=== PATIENT | male | born 1950 | race Caucasian/White ===

== ENCOUNTER → 2016-12-29 | Outpatient (CLI) | payer MEDICARE, OTHER ==
--- NOTE | 2016-12-29 15:39 | KCIC ---
INDICATION: Low back pain extending into both legs, has increased from last year. TECHNIQUE: Sagittal T1, sagittal T2, sagittal STIR, axial T1, and axial T2 sequences are provided. Comparison is from October 17, 2015. FINDINGS: There is straightening of lumbar lordosis but no subluxation. There are a few probable hemangiomas. There is fatty replacement of the endplates at several levels. There is endplate edema which appears degenerative in the inferior endplate of L3 and at L1-L2 posteriorly. A few small Schmorl's nodes are noted. There is diffuse disc desiccation and narrowing of disc spaces. The conus medullaris is normal in signal intensity and in position. Probable cysts in the kidneys are retrospectively stable. The numbering system assumes 5 lumbar type vertebral bodies. Findings by individual level are as follows: L1-L2: Disc osteophyte complex has a right paracentral protruding component. There is mild facet hypertrophy. There is right lateral recess narrowing. Midline AP diameter of the thecal sac is narrowed to 9 mm. There is mudl-xy-covlbcby right foraminal narrowing. L2-L3: Disc osteophyte complex and facet and ligamentum flavum hypertrophy are noted. There is moderate to severe canal stenosis. There is lateral recess narrowing bilaterally but greater on the right. Foraminal narrowing is [id number]. L3-L4: Disc osteophyte complex and marked facet and ligamentum flavum hypertrophy are noted. There is severe canal stenosis and lateral recess narrowing. There is moderate right and mild left foraminal narrowing. Nerve roots appear redundant below this level. L4-L5: Disc osteophyte complex and marked facet and ligamentum flavum hypertrophy result in moderate to severe canal stenosis with lateral recess narrowing bilaterally. Foraminal narrowing is [id number] on the right and severe on the left. L5-S1: Disc osteophyte complex and facet hypertrophy are noted with moderate left and yhzh-rz-uayznbge right foraminal narrowing. In addition to the advanced degenerative changes, the AP dimension of the spinal canal appears diffusely narrowed, likely on a developmental basis secondary to short pedicles. IMPRESSION: Degenerative changes in the lumbar spine remain greatest at L3-L4 and L4-L5. There is high-grade canal stenosis at these levels. Overall, findings are relatively stable. Electronically signed by: Perry Cervantes MD (12/29/2016 3:36 PM) [email or web address]
== END | disposition home or self-care (01) ==
LOC: KCIC MRI 14:15
PROVIDERS: ATTEND Physician Assistant
DX: M47.896 Other spondylosis, lumbar region (principal); M48.06 Spinal stenosis, lumbar region
CPT/HCPCS: 72148

== ENCOUNTER → 2018-05-08 | Outpatient (CLI) | payer MEDICARE, OTHER ==
[~2018-05-08] MED LIST: GADOBUTROL 10 MMOL/10 ML VIAL IV ONE; LEVO25TA55 PO; SERT25TA PO
--- NOTE | 2018-05-08 17:21 | KCIC ---
MRI Lumbar Spine without and with contrast History: Low back pain, previous surgery, right hip pain Technique: Multiplanar, multi sequential pre and postcontrast MR imaging was performed of the lumbar spine. Comparison: December 29, 2016 Findings: Since the previous exam, there has been development of the anterior, superior height loss of L4 although not associated with significant marrow edema or osseous retropulsion. AP alignment is unchanged, negligible anterior spondylolisthesis L1-2. There is multilevel fairly advanced degenerative disc disease throughout lumbar spine other than mild to moderate degenerative disc disease at L4-5, progression of degenerative disc disease in the interval most notable L2-3 and L3-4. There is multilevel variable degenerative endplate change, also somewhat amorphous L3-4 endplate edema more likely to be reactive/degenerative in etiology. There is hemangioma of the L2 vertebral body, other scattered smaller foci of fatty marrow replacement or hemangiomas. Conus terminates at L1-2. There is no nodular enhancement of the conus or cauda equina. There is mild levoscoliosis. L1-L2: There has been interval posterior decompression. There is again disc osteophyte complex and shallow protrusion more eccentric to the right lateral recess, mild to moderate narrowing of the far right lateral recess with contact of the right L2 nerve root, central canal and left lateral recess overall adequate. There is mild facet degenerative change. There is mild narrowing of the right neural foramen, left neural foramen adequate. L2-L3: There has been interval posterior decompression. There is facet degenerative change. There is disc osteophyte complex again greater in the right lateral recess, mild narrowing of the far right lateral recess. Central canal is now overall adequate. There is moderate narrowing of the right neural foramen by disc osteophyte complex as seen previously, also contact of the undersurface exiting right L2 nerve root in the distal neural foramen and extraforaminal region by disc osteophyte complex. Left neural foramen is overall adequate. L3-L4: There has been interval posterior decompression. There is facet degenerative change. There is now small synovial cyst in the far right lateral recess about 0.3 cm. There is disc osteophyte complex, adjacent enhancing fibrosis greatest centrally. There is residual mild to moderate narrowing of the far right lateral recess primarily from posteriorly by facet, decreased central canal stenosis.There is fairly severe narrowing of the right neural foramen primarily from disc osteophyte complex with contact exiting right L3 nerve root in the neural foramen and extraforaminal region. There is mild narrowing left neural foramen inferiorly by disc osteophyte complex. L4-L5: There has been posterior decompression. There is left greater than right facet degenerative change as seen previously. There is broad posterior disc osteophyte complex. Central canal is now overall adequate, residual mild narrowing of the far left lateral recess. There is again fairly severe narrowing of the left neural foramen primarily from disc osteophyte complex with contact exiting left L4 nerve root, mild to moderate narrowing on the right. L5-S1: There is facet degenerative change and minimal buckling of the ligamentum flavum. There is broad posterior disc osteophyte complex. There is again mild narrowing of the far left lateral recess, to lesser degree on right. There is severe left and moderate right neural foramina compromise as seen previously. Impression: 1. There has been multilevel posterior decompression L1-L2 through L4-5. There is residual lateral recess stenosis as stated greatest on the right at L1-2 and L3-4. There is multilevel lumbar degenerative disc disease, progressed most notable at L2-3 and L3-4 since 2017 exam. There has been development of anterior, superior height loss of L4 not associated with significant marrow edema. There is multilevel lumbar neural foramina compromise as stated including more significant narrowing on the left at L5-S1 and L4-5, on the right at L3-L4, lesser degree of narrowing such as on the right at L2-3 and L5-S1. Electronically signed by: Fady Oviedo MD (05/08/2018 5:17 PM) [email or web address]
== END | disposition home or self-care (01) ==
LOC: KCIC MRI 14:49
PROVIDERS: ATTEND Physician Assistant
DX: M51.36 Other intervertebral disc degeneration, lumbar region (principal); M48.061 Spinal stenosis, lumbar region without neurogenic claudication; M47.817 Spondylosis without myelopathy or radiculopathy, lumbosacral region; M25.78 Osteophyte, vertebrae; M71.38 Other bursal cyst, other site
CPT/HCPCS: 72158; 82565; A9585

== ENCOUNTER → 2021-01-29 | Outpatient (CLI) | payer MEDICARE, OTHER ==
[~2021-01-29] MED LIST changes: -GADOBUTROL 10 MMOL/10 ML VIAL IV ONE
--- NOTE | 2021-01-29 16:31 | KCIC ---
EXAM: CT OF THE CHEST WITHOUT CONTRAST. HISTORY: Left chest and rib pain for one year. TECHNIQUE: Computed tomography of the chest was performed without intravenous contrast. One or more o f the following individualized dose reduction techniques were utilized for this examination: 1. Automated exposure control. 2. Adjustment of the mA and/or kV according to patient size. 3. Use of iterative reconstruction technique. COMPARISON: None. FINDINGS: Images of the upper abdomen reveal a benign 1.6 cm cyst in the right kidney. Diffuse hepati c steatosis is at least mild. Bone windows reveal no suspicious lesions. There are laminectomy change s within the lumbar spine. There are chronic left rib fractures. No acute fractures are seen. There are no pathologically enlarged mediastinal or axillary lymph nodes. Calcified mediastinal lymph nodes are likely secondary to old granulomatous disease. There is no pleural or pericardial effusion . The heart is not enlarged. There are atherosclerotic calcifications of the coronary arteries. The right hemidiaphragm is moderately elevated. There is mild atelectasis in the right base. Note is made of an azygos fissure. IMPRESSION: 1. No acute abnormalities appreciated within the left chest wall. No cause for pain is identified. 2. Moderate elevation of the right hemidiaphragm. 3. Diffuse hepatic steatosis. Electronically signed by: Wanda Wade MD (01/29/2021 4:29 PM) [id number]
== END ==
LOC: KCIC CT 12:43
PROVIDERS: ATTEND Family Medicine
DX: I25.10 Atherosclerotic heart disease of native coronary artery without angina pectoris (principal); R59.0 Localized enlarged lymph nodes; N28.1 Cyst of kidney, acquired; K76.0 Fatty (change of) liver, not elsewhere classified; J98.11 Atelectasis
CPT/HCPCS: 71250